=== PATIENT | female | born 1945 | race Caucasian/White ===

== ENCOUNTER 2021-08-08 11:17 | Day surgery (SDC) | payer MEDICARE ==
[2021-08-07 09:37] LABS: BASOPHILS # (AUTO) 0.1 X10'3 (0-0.2); BASOPHILS % (AUTO) 1.2 % (0-1); EOSINOPHILS # (AUTO) 0.2 X10'3 (0-0.9); EOSINOPHILS % (AUTO) 3.2 % (0-6); HEMATOCRIT 44.3 % (35.0-45.0); HEMOGLOBIN 14.7 g/dl (12.0-16.0); LYMPHOCYTES # (AUTO) 1.2 X10'3 (1.1-4.8); MEAN CORPUSCULAR HEMOGLOBIN 29.2 PG (27.0-31.0); MEAN CORPUSCULAR HGB CONC 33.1 g/dL (33.0-36.5); MEAN PLATELET VOLUME 8.5 FL (7.4-10.4); MONOCYTES # (AUTO) 0.4 X10'3 (0-0.9); MONOCYTES % (AUTO) 6.1 % (2-12); NEUTROPHILS # (AUTO) 5.1 X10'3 (1.8-7.7); NEUTROPHILS % (AUTO) 72.5 % (42-75); PLATELET COUNT 262 X10'3 (140-440); RED BLOOD COUNT 5.03 X10'6 (4.20-5.60); RED CELL DISTRIBUTION WIDTH 14.6 % (11.5-14.5); WHITE BLOOD COUNT 7.1 X10'3 (4.5-11.0)
[2021-08-07 09:52] LABS: PARTIAL THROMBOPLASTIN TIME 26 SECONDS (22-32)
[2021-08-07 09:53] LABS: ALANINE AMINOTRANSFERASE 42 U/L (12-78); ALBUMIN 3.4 G/DL (3.4-5.0); ALBUMIN/GLOBULIN RATIO 0.9 (1.1-1.5); ALKALINE PHOSPHATASE 113 IU/L (46-116); ANION GAP 13 (8-16); ASPARTATE AMINO TRANSFERASE 22 U/L (10-37); BILIRUBIN,TOTAL 0.4 MG/DL (0.1-1.0); BLOOD UREA NITROGEN 12 MG/DL (7-18); BUN/CREATININE RATIO 12.5 (6.6-38.0); CALCIUM 8.4 MG/DL (8.5-10.1); CHLORIDE 106 MMOL/L (99-107); CREATININE 0.96 MG/DL (0.40-0.90); GLUCOSE 141 MG/DL (70-104); POTASSIUM 3.9 MMOL/L (3.5-5.1); SODIUM 144 MMOL/L (135-145); TOTAL CARBON DIOXIDE 24.7 MMOL/L (24-32); TOTAL PROTEIN 7.3 G/DL (6.4-8.2); eGFR 57 ML/MIN
[2021-08-08] VITALS (10 sets, daily range): BP systolic 110–133; BP diastolic 61–86
[~2021-08-08] VITALS: Ht 160 cm; Wt 71.8 kg
[2021-08-08] MEDS ORDERED: diphenhydrAMINE 25mg capsule PO PRN (11:35)
[2021-08-08] MEDS ORDERED: dextrose 50%-water 50ml dispensing syringe IV PRN ×2 (11:35)
[2021-08-08] MEDS ORDERED: normal saline 1,000 ML IV SCH (11:35)
[2021-08-08] MEDS ORDERED: nitroGLYCERIN 0.4mg SUBLingual tab SL PRN (11:35)
[2021-08-08] MEDS ORDERED: dextrose ORAL solution 15 GM/59 ML bottle PO PRN ×2 (11:35)
[2021-08-08] MEDS ORDERED: MESSAGE TO PHARMACY PO ONE (11:35)
[2021-08-08] MEDS ORDERED: glucagon, human recombinant 1mg kit SUBCUT PRN (11:35)
[2021-08-08] MEDS ORDERED: insulin Lispro (HumaLOG) vial - multi-dose SQ SCH (11:35)
[2021-08-08] MEDS ORDERED: LORazepam 0.5 MG tablet PO PRN (11:35)
[2021-08-08] MEDS ORDERED: LIDOcaine 1% (10mg/ml)w/preservative injection 20ml MDV ONE (11:54)
[2021-08-08] MEDS ORDERED: midazolam 1 mg/ML 2ml injection ONE (11:54)
[2021-08-08] MEDS ORDERED: nitroGLYCERIN-Tridil 50MG/D5W 250 ML IV ONE (11:54)
[2021-08-08] MEDS ORDERED: fentaNYL/PF 50MCG/1 ML 2ML syringe ONE (11:54)
[2021-08-08] MEDS ORDERED: iohexol 350MG/ML 100ml bottle IV ONE (11:55)
[2021-08-08] MEDS ORDERED: iohexol 350 MG/ML 50ML vial IV ONE (11:55)
[2021-08-08] MEDS ORDERED: DILT-36 PO (11:58)
[2021-08-08] MEDS ORDERED: CLOP75TA34 PO (11:58)
[2021-08-08] MEDS ORDERED: TRAZ-251 PO (11:58)
[2021-08-08] MEDS ORDERED: ATOR20TA66 PO (11:58)
[2021-08-08] MEDS ORDERED: ROPI1TAB6 PO (11:58)
[2021-08-08] MEDS ORDERED: GABA-530 PO (11:58)
[2021-08-08] MEDS ORDERED: PARO40TA4 PO (11:58)
[2021-08-08] MEDS ORDERED: SEMA3TAB PEG (12:02)
[2021-08-08] MEDS ORDERED: IBUP-1986 PO (12:02)
[2021-08-08] MEDS ORDERED: VENL75TA4 PO (12:02)
[2021-08-08] MEDS ORDERED: ASPI-1265 PO (12:02)
[2021-08-08] MEDS ORDERED: ondansetron/PF 4mg/2ml inj IV PRN (13:40)
[2021-08-08] MEDS ORDERED: OXAZEpam 15mg capsule PO PRN (13:45)
[2021-08-08] MEDS ORDERED: proCHLORperazine 10 MG/2 ml inj IV PRN (13:45)
[2021-08-08] MEDS ORDERED: insulin glargine (Lantus) pen - multi-dose SQ SCH (21:00)
== END 2021-08-08 19:10 | disposition home or self-care (01) ==
LOC: SSTAY O 11:17
PROVIDERS: ATTEND Internal Medicine Cardiovascular Disease
DX: R94.39 Abnormal result of other cardiovascular function study (principal); I10 Essential (primary) hypertension; E11.9 Type 2 diabetes mellitus without complications; J44.9 Chronic obstructive pulmonary disease, unspecified; G47.33 Obstructive sleep apnea (adult) (pediatric); F32.9 Major depressive disorder, single episode, unspecified; G43.909 Migraine, unspecified, not intractable, without status migrainosus; G25.89 Other specified extrapyramidal and movement disorders; E78.5 Hyperlipidemia, unspecified; G89.4 Chronic pain syndrome; Z85.3 Personal history of malignant neoplasm of breast; Z79.01 Long term (current) use of anticoagulants; Z87.891 Personal history of nicotine dependence; Z79.899 Other long term (current) drug therapy
CPT/HCPCS: 36415; 71046; 80053; 85025; 85610; 85730; 93005; 93458; 99152; C1760; C1769; J1644; J1815; J2001; J2250; J3010; J7030; Q0163; Q9967; A6258; J3490